=== PATIENT | female | born 1980 | race Hispanic/Latino ===

== ENCOUNTER → 2023-11-08 | Emergency (ER) | payer OTHER ==
[~2023-11-08] MED LIST: KETOROLAC 30 MG/ML INJ ONE
--- OUTSIDE RECORDS SUMMARY | 2023-11-08 08:55 | XMS REPORT | Continuity of Care Document ---
Author Name Unknown Address [address] [facility] [address] [place] [address] [facility] thconnect Address [address] [place] [address] Care Team Providers Care Seo Specialist Name Role Phone marli Attending Clinician Unavailable Payers Payer Name Policy Type Policy Number Effective Date Expirati on Date Source SELF-PAY CI [id number] SELF PAY P [id number] Encounters Start Date/Time End Date/Time Encounter Type Admission Type Attending Clinicians Care Facility Care Department Encounter ID Source 2023-01-08 12:46:22 Outpatient IBNS IBNS [id number] - [id number] Nicolas Devonte 2023-01-06 17:23:19 Outpatient IBNS IBNS [id number] - [id number] Nicolas Devonte 2022-07-17 18:58:32 Outpatient IBNS IBNS [id number] - [id number] Nicolas Devonte 2021-06-30 21:25:07 Outpatient marli [facility] [id number] [facility]
--- NOTE | 2023-11-08 09:35 | RAD REPORT ---
EXAM DESCRIPTION: RAD - Chest Single View - 11/08/2023 9:27 am CLINICAL HISTORY: CHEST PAIN Chest pain. COMPARISON: No comparisons FINDINGS: Portable technique limits examination quality. The lungs are grossly clear. The heart is upper limit of normal in size. No displaced fractures. IMPRESSION: No acute intrathoracic process suspected.
[2023-11-08 10:02] LABS: Absolute Lymphocytes (CBC) 1.8 K/uL (0.7-4.9); Hematocrit 40.5 % (36.0-45.0); Lymphocytes % 23.8 % (15.3-44.8); MCV 86.3 fL (80-100); MPV 7.4 fL (7.6-11.3); Platelets 313 thou/uL (152-406); RBC Red Blood Cell Count 4.69 M/uL (3.86-4.86)
[2023-11-08 11:53] LABS: Troponin High Sensitivity 3.9 pg/mL (<58.9)
--- NOTE | 2023-11-08 11:59 | ER ---
Nurse's Notes [facility] Name: Ness Ledesma Age: 42 yrs Sex: Female : 1980 Arrival Date: 11/08/2023 Time: 08:50 Bed 10 Private MD: Diagnosis: Costochondritis Presentation: 11/08 09:04 Chief complaint: Patient states: midsternal chest pain started yesterday at 5 am, iw intermittent , feels like pressure, also feels like her left arm is heavy, yesterday her arm felt tingly, she has had similar episode in past and it was due to her sugar being high, states her sugars are controlled now in the 110-120 range, hx of high BP. Coronavirus screen: At this time, the client does not indicate any symptoms associated with coronavirus-19. Ebola Screen: Patient negative for fever greater than or equal to 101.5 degrees Fahrenheit, and additional compatible Ebola Virus Disease symptoms Patient denies exposure to infectious person. Patient denies travel to an Ebola-affected area in the 21 days before illness onset. No symptoms or risks identified at this time. 09:04 Method Of Arrival: Ambulatory iw 09:04 Acuity: SARAH 3 iw 10:00 Initial Sepsis Screen: Does the patient meet any 2 criteria? No. Patient's initial bp sepsis screen is negative. Does the patient have a suspected source of infection? No. Patient's initial sepsis screen is negative. Risk Assessment: Do you want to hurt yourself or someone else? Patient reports no desire to harm self or others. Onset of symptoms is unknown. Triage Assessment: 10:00 General: Appears in no apparent distress. Behavior is calm, cooperative, appropriate bp for age. Pain: Complains of pain in chest. 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 - Social history:: Smoking status: Patient denies any tobacco usage or history of. Screenin:45 [facility] ED Fall Risk Assessment (Adult) History of falling in the last 3 months, jl7 including since admission No falls in past 3 months (0 pts) Confusion or Disorientation No (0 pts) Intoxicated or Sedated No (0 pts) Impaired Gait No (0 pts) Mobility Assist Device Used No (0 pt) Altered Elimination No (0 pt) Score/Fall Risk Level 0 - 2 = Low Risk Oriented to surroundings, Maintained a safe environment. Abuse screen: Denies threats or abuse. Denies injuries from another. Nutritional screening: No deficits noted. Tuberculosis screening: No symptoms or risk factors identified. Assessment: 09:45 General: Appears in no apparent distress. uncomfortable, Behavior is calm, cooperative, jl7 appropriate for age. Pain: Complains of pain in anterior aspect of left upper chest Pain does not radiate. Pain currently is 7 out of 10 on a pain scale. Quality of pain is described as squeezing, Pain began 1 day ago. Is intermittent. Neuro: Level of Consciousness is awake, alert, obeys commands, Oriented to person, place, time, situation. Cardiovascular: Patient's skin is warm and dry. Rhythm is regular. Respiratory: Airway is patent Respiratory effort is even, unlabored, Respiratory pattern is regular, symmetrical, Denies shortness of breath. GI: No signs and/or symptoms were reported involving the gastrointestinal system. : No signs and/or symptoms were reported regarding the genitourinary system. 12:20 Reassessment: DC HOME AMBULATORY. bp Vital Signs: 09:08 BP 130 / 73; Pulse 81; Resp 18; Temp 98.4; Pulse Ox 96% ; Weight 112.49 kg; Height 5 iw ft. 4 in. ; Pain 7/10; 09:08 Body Mass Index 42.57 (112.49 kg, 162.56 cm) iw 09:08 Pain Scale: Adult iw ED Course: 09:04 Patient arrived in ED. iw 09:06 Triage completed. iw 09:08 Arm band placed on. iw 09:10 EKG completed in triage. Results shown to MD. jl7 09:11 Grabiel Jung MD is Attending Physician. ec2 09:28 XRAY Chest (1 view) In Process Unspecified. EDMS 09:45 Patient has correct armband on for positive identification. Provided Education on: jl7 Educated on tests. 09:45 Initial lab(s) drawn, by me, sent to lab. Inserted saline lock: 22 gauge in left jl7 antecubital area, using aseptic technique. Blood collected. Patient maintains SpO2 saturation greater than 95% on room air. 10:29 Geraldo Mcclain, RN is Primary Nurse. bp 12:20 Cardiac monitoring not applicable on this patient. bp 12:20 No provider procedures requiring assistance completed. IV discontinued, intact, bp bleeding controlled, No redness/swelling at site. Pressure dressing applied. Administered Medications: 09:50 Drug: Ketorolac IVP 15 mg IVP once Route: IVP; Site: left antecubital; jl7 Medication: 12:20 VIS not applicable for this client. bp Outcome: 11:59 Discharge ordered by . ec2 12:21 Discharged to home ambulatory, bp 12:21 Condition: stable 12:21 Discharge instructions given to patient, Instructed on discharge instructions, follow up and referral plans. Demonstrated understanding of instructions, follow-up care, 12:22 Patient left the ED. bp Signatures: Dispatcher [employer] EDCO Hilary Cuellar RN RN iw Lisbeth Hernandez RN RN Geraldo Parham, RN RN bp Jung, MD DILLON Spain ec2 Corrections: (The following items were deleted from the chart) 09:08 09:08 Resp 18bpm; Pulse Ox 96%; Temp 98.4F; 112.49 kg; Height 5 ft. 4 in.; BMI: 42.5; iw Pain 7/10, Adult; iw 10:17 09:08 BP 130 / 73; Pulse 81bpm; Resp 18bpm; Pulse Ox 96%; Temp 98.4F; 112.49 kg; Height iw 5 ft. 4 in.; BMI: 42.5; Pain 7/10, Adult; iw
--- NOTE | 2023-11-08 11:59 | EDPHYS ---
Physician Documentation [facility] Name: Ness Ledesma Age: 42 yrs Sex: Female : 1980 Arrival Date: 11/08/2023 Time: 08:50 Bed 10 Private MD: ED Physician Grabiel Jung HPI: 11/08 09:19 This 42 yrs old Female presents to ER via Ambulatory with complaints of Chest ec2 Pain. 09:19 Patient arrives today for chest pain. Patient reports that she has been having chest ec2 pain since yesterday. Reports it is intermittent, worsened with positional movements, worse with pressing on the area. Worsen with moving the arm as well. Patient reports no difficulty breathing, no recent illnesses, no recent trauma. . 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 - Social history:: Smoking status: Patient denies any tobacco usage or history of. ROS: 09:19 Constitutional: as per hpi ec2 Exam: 09:19 Constitutional: GEN: NAD Head: atraumatic Eyes: EOMI Ears: External ears are ec2 normal. CV: regular rate LUNGS: no respiratory distress ABD: non-distended SKIN: no evidence of rashes MSK: no evidence of trauma, reproducible chest wall TTP NEURO: moves all extremities equally Vital Signs: 09:08 BP 130 / 73; Pulse 81; Resp 18; Temp 98.4; Pulse Ox 96% ; Weight 112.49 kg; Height 5 iw ft. 4 in. ; Pain 7/10; 09:08 Body Mass Index 42.57 (112.49 kg, 162.56 cm) iw 09:08 Pain Scale: Adult iw MDM: 09:11 Patient medically screened. ec2 09:19 Data reviewed: vital signs. ED course: Patient arrives today for evaluation of chest ec2 pain. Examination remarkable for reproducible chest wall TTP. Will obtain lab work, cardiac workup, treat the patient's symptoms with Toradol. Currently evaluated for ACS, low suspicion for PE or dissection. Additionally considering costochondritis.. 09:21 ED course: EKG obtained, independently reviewed and interpreted by me, shows normal ec2 sinus rhythm, rate of 79, no acute ST segment elevations, nonconcerning intervals. . 10:17 ED course: CBC reassuring, chest x-ray shows no acute intrathoracic process. . ec2 10:30 ED course: Metabolic profile reassuring.. ec2 11:56 ED course: Metabolic profile reassuring, troponin within normal ranges. . ec2 11:57 ED course: On reassessment patient is well-appearing in no acute distress. Suspect ec2 costochondritis causing patient's symptoms. Will discharge home. Return precautions given.. 11/08 09:15 Order name: Basic Metabolic Panel; Complete Time: 11:56 ec2 11/08 09:15 Order name: CBC with Diff; Complete Time: 10:17 ec2 11/08 09:15 Order name: Troponin HS; Complete Time: 11:56 ec2 11/08 09:15 Order name: XRAY Chest (1 view); Complete Time: 10:17 ec2 11/08 09:15 Order name: EKG; Complete Time: 09:16 ec2 11/08 09:15 Order name: Cardiac monitoring; Complete Time: 11:03 ec2 11/08 09:15 Order name: EKG - Nurse/Tech; Complete Time: 09:41 ec2 11/08 09:15 Order name: IV Saline Lock; Complete Time: 09:54 ec2 11/08 09:15 Order name: Labs collected and sent; Complete Time: 09:54 ec2 11/08 09:15 Order name: O2 Per Protocol; Complete Time: 09:41 ec2 11/08 09:15 Order name: O2 Sat Monitoring; Complete Time: 11:03 ec2 Administered Medications: 09:50 Drug: Ketorolac IVP 15 mg IVP once Route: IVP; Site: left antecubital; jl7 Disposition Summary: 11/08/23 11:59 Discharge Ordered Notes: Location: Home ec2 Condition: Stable ec2 Diagnosis - Costochondritis ec2 Followup: ec2 - With: Private Physician - When: - Reason: Re-evaluation by your physician Discharge Instructions: - Discharge Summary Sheet ec2 - Costochondritis, [id number] ec2 Forms: - Medication Reconciliation Form ec2 - Thank You Letter ec2 - Antibiotic Education ec2 - Prescription Opioid Use ec2 - Patient Portal Instructions ec2 - Leadership Thank You Letter ec2 Signatures: Dispatcher [employer] Hilary Good RN RN iw Leal, Jahala, RN RN jl7 Grabiel Jung MD MD ec2
[2023-11-08 12:42] VITALS: BP 130/73; TEMP 98.4; O2SAT 96
== END ==
LOC: ER 08:50
DX: M94.0 Chondrocostal junction syndrome [Tietze] (principal); I10 Essential (primary) hypertension; E11.9 Type 2 diabetes mellitus without complications; J45.909 Unspecified asthma, uncomplicated; Z79.899 Other long term (current) drug therapy
CPT/HCPCS: 36415; 71045; 80048; 84484; 85025; 93005

== ENCOUNTER 2024-04-28 22:36 | Emergency (ER) | payer OTHER ==
--- OUTSIDE RECORDS SUMMARY | 2024-04-28 22:40 | XMS REPORT | Continuity of Care Document ---
Author Name Unknown Address [address] [facility] [address] [place], [place] [address] [place] [address] thconnect Address [address] [facility] [place] [address] Care Team Providers Care Outer Diameter Grinder Tool Name Role Phone marli Attending Clinician Unavailable Payers Payer Name Policy Type Policy Number Effective Date Expirati on Date Source SELF-PAY CI [id number] SELF PAY P [id number] Encounters Start Date/Time End Date/Time Encounter Type Admission Type Attending Clinicians Care Facility Care Department Encounter ID Source 2023-01-08 12:46:22 Outpatient IBNS IBNS [id number] - [id number] Nicolas Devonte 2023-01-06 17:23:19 Outpatient IBNS IBNS [id number] - [id number] Nicolas Devonte 2022-07-17 18:58:32 Outpatient IBNS IBNS [id number] - [id number] Nicolas Devonte 2021-06-30 21:25:07 Outpatient marli [facility] [id number] [facility]
[2024-04-29] MEDS ORDERED: metroNIDAZOLE 500 MG TABLET ONE (03:35)
[2024-04-29 03:45] LABS: Specific Gravity 1.028 (1.005-1.030)
[2024-04-29 03:50] LABS: Specific Gravity 1.029 (1.005-1.030); Sqamous Epithelial <5 /HPF (None Seen); Urine Bacteria <20 /HPF (<20); Urine Bilirubin NEGATIVE (Negative); Urine Blood Trace (Negative); Urine Clarity Extremely Turbid (Clear); Urine Color Yellow (Yellow); Urine Crystals Unidentified Few /HPF (None Seen); Urine Culture Reflex Order NOT NEEDED; Urine Glucose 4+ (Negative); Urine Ketones NEGATIVE (Negative); Urine Micro Reflex YN NO BILL MICROSCOPIC; Urine Mucus 1+ /HPF (None Seen); Urine Nitrite NEGATIVE (Negative); Urine Protein TRACE (Negative); Urine Urobilinogen Normal (Normal); Urine WBC <5 /HPF (<5); Urine WBC Clump Rare /HPF (None Seen); Urine pH 5.5 (5.0-7.0)
--- NOTE | 2024-04-29 03:52 | ER ---
Nurse's Notes [facility] Name: Ness Ledesma Age: 43 yrs Sex: Female : 1980 Arrival Date: 04/28/2024 Time: 22:36 Bed 9 Private MD: Diagnosis: Acute cervicitis and vaginitis Presentation: 04/28 23:04 Chief complaint: Patient states: Since I have been having irritation in my jb4 vaginal area. It started getting worse on Sunday. Today it feels rough and is bleeding and has a burning sensation. Coronavirus screen: At this time, the client does not indicate any symptoms associated with coronavirus-19. Ebola Screen: No symptoms or risks identified at this time. Initial Sepsis Screen: Does the patient meet any 2 criteria? HR > 90 bpm. Yes Does the patient have a suspected source of infection? No. Patient's initial sepsis screen is negative. Risk Assessment: Do you want to hurt yourself or someone else? Patient reports no desire to harm self or others. Onset of symptoms was April 24, 2024. Transition of care: patient was not received from another setting of care. 23:04 Method Of Arrival: Ambulatory jb4 23:04 Acuity: SARAH 3 jb4 Triage Assessment: 23:06 General: Appears in no apparent distress. uncomfortable, Behavior is calm, cooperative, jb4 appropriate for age. Pain: Complains of pain in groin Pain does not radiate. Pain currently is 9 out of 10 on a pain scale. Quality of pain is described as burning, itching. EENT: No signs and/or symptoms were reported regarding the EENT system. Neuro: Level of Consciousness is awake, alert, obeys commands, Oriented to person, place, time, situation. Cardiovascular: Patient's skin is warm and dry. Respiratory: Airway is patent Respiratory effort is even, unlabored, Respiratory pattern is regular, symmetrical. : Reports pain with urination, vaginal bleeding that is with wiping. Derm: Skin is intact, Skin is pink, warm \T\ dry. Musculoskeletal: Circulation, motion, and sensation intact. Range of motion: intact in all extremities. 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 - Infectious Disease History:: Denies. - Social history:: Smoking status: Patient denies any tobacco usage or history of. Screenin/13 04:22 [facility] ED Fall Risk Assessment (Adult) History of falling in the last 3 months, jb4 including since admission No falls in past 3 months (0 pts) Confusion or Disorientation No (0 pts) Intoxicated or Sedated No (0 pts) Impaired Gait No (0 pts) Mobility Assist Device Used No (0 pt) Altered Elimination No (0 pt) Score/Fall Risk Level 0 - 2 = Low Risk Oriented to surroundings, Maintained a safe environment. Abuse screen: Denies threats or abuse. Nutritional screening: No deficits noted. Tuberculosis screening: No symptoms or risk factors identified. Assessment: 04:22 Reassessment: Patient appears in no apparent distress at this time. Patient and/or jb4 family updated on plan of care and expected duration. Pain level reassessed. Patient is alert, oriented x 3, equal unlabored respirations, skin warm/dry/pink. Vital Signs: 04/28 23:04 BP 181 / 88; Pulse 95; Resp 16; Temp 99(O); Pulse Ox 96% on R/A; Weight 117.93 kg (R); jb4 Height 5 ft. 4 in. (R); Pain 9/10; 04/29 04:22 BP 137 / 89; Pulse 88; Resp 16; Pulse Ox 99% on R/A; jb4 04/28 23:04 Body Mass Index 44.63 (117.93 kg, 162.56 cm) jb4 04/28 23:04 Pain Scale: Adult jb4 ED Course: 04/28 22:40 Patient arrived in ED. im 22:49 Loretta Sanders PA-C is PHCP. sb4 22:49 Greg Castro MD is Attending Physician. sb4 23:06 Triage completed. jb4 23:06 Arm band placed on right wrist. jb4 04/29 03:51 Loretta Corey MD is Referral Physician. sb4 04:22 Patient has correct armband on for positive identification. Bed in low position. Call jb4 light in reach. Side rails up X 1. Provided Education on: discharge instructions.. 04:22 No provider procedures requiring assistance completed. Patient did not have IV access jb4 during this emergency room visit. Administered Medications: 03:37 Drug: metroNIDAZOLE PO 500 mg PO once Route: PO; jb4 Medication: 04:22 VIS not applicable for this client. jb4 Outcome: 03:51 Discharge ordered by . sb4 04:22 Discharged to home ambulatory, jb4 04:22 Condition: stable 04:22 Discharge instructions given to patient, Instructed on discharge instructions, follow up and referral plans. medication usage, Demonstrated understanding of instructions, follow-up care, medications, Prescriptions given X 1, 04:28 Patient left the ED. jb4 Signatures: Loki Quintana RN RN jb4 Loretta Sanders, PAMadelinC PA-C sb4 Martina Pierce
--- NOTE | 2024-04-29 03:52 | EDPHYS ---
Physician Documentation [facility] Name: Ness Ledesma Age: 43 yrs Sex: Female : 1980 Arrival Date: 04/28/2024 Time: 22:36 Bed 9 Private MD: ED Physician Greg Castro HPI: 04/29 02:52 This 43 yrs old Female presents to ER via Ambulatory with complaints of sb4 Vaginal Bleeding, Vaginal Pain. 02:52 vaginal pain, irritation, and spotting started 4 days ago, slowly worsening. denies any sb4 new sexual partners, aggressive intercourse, or trauma to her vaginal area. does not believe it is her urethra. states she has been using OTC vaginal itch cream without relief. denies any vaginal discharge. 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 - Infectious Disease History:: Denies. - Social history:: Smoking status: Patient denies any tobacco usage or history of. ROS: 04/29 02:52 Positive for pelvic pain, vaginal bleeding, vaginal itching, sb4 Constitutional: Negative for fever, chills, and weight loss, All other systems are negative, Exam: 02:52 Constitutional: This is a well developed, well nourished patient who is awake, alert, sb4 and in no acute distress. Head/Face: Normocephalic, atraumatic. Eyes: Extra-ocular motions intact. Periorbital areas with no swelling, redness, or edema. ENT: Mucous membranes moist. 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 4 in. (R); Pain 9/; 04/29 04:22 BP 137 / 89; Pulse 88; Resp 16; Pulse Ox 99% on R/A; jb4 04/28 23:04 Body Mass Index 44.63 (117.93 kg, 162.56 cm) jb4 04/28 23:04 Pain Scale: Adult jb4 MDM: 04/28 23:03 Patient medically screened. sb4 04/29 03:32 Data reviewed: vital signs, nurses notes, lab test result(s), and as a result, I will sb4 discharge patient. Counseling: I had a detailed discussion with the patient and/or guardian regarding the historical points, exam findings, and any diagnostic results supporting the discharge/admit diagnosis, the presence of at least one elevated blood pressure reading (>120/80) during this emergency department visit, lab results, to return to the emergency department if symptoms worsen or persist or if there are any questions or concerns that arise at home. 04/28 23:08 Order name: JAEL; Complete Time: 03:51 sb4 04/28 23:08 Order name: Test, Urine; Complete Time: 03:52 sb4 Administered Medications: 03:37 Drug: metroNIDAZOLE PO 500 mg PO once Route: PO; jb4 Disposition: 22:34 Co-signature as Attending Physician, Greg Castro MD I agree with the assessment sp4 and plan of care. I reviewed the patient's care provided by the Advanced Practice Provider and agree with the diagnosis and treatment plan. Disposition Summary: 04/29/24 03:51 Discharge Ordered Notes: Location: Home sb4 Problem: new sb4 Symptoms: have improved sb4 Condition: Stable sb4 Diagnosis - Acute cervicitis and vaginitis sb4 Followup: sb4 - With: Loretta Corey MD - When: 1 week - Reason: Recheck today's complaints, Re-evaluation by your physician Discharge Instructions: - Discharge Summary Sheet sb4 - Vaginitis, [id number] sb4 - Cervicitis, [id number] sb4 Forms: - Antibiotic Education sb4 - Patient Portal Instructions sb4 - Leadership Thank You Letter sb4 Prescriptions: - Metronidazole 500 mg Oral tablet - take 1 tablet ORAL route every 12 hours; 14 tablet; Refills: 0, Product sb4 Selection Permitted Signatures: Dispatcher [employer] Loki Cash RN RN jb4 Loretta Sanders PA-C PA-C sb4 Greg Castro MD MD sp4
[2024-04-29 04:32] VITALS: TEMP 99
[2024-04-29 04:34] VITALS: BP 137/89; O2SAT 99
== END 2024-04-29 04:28 | disposition home or self-care (01) ==
LOC: ER 22:36
DX: N76.0 Acute vaginitis (principal); N72 Inflammatory disease of cervix uteri
CPT/HCPCS: 81001; 81025